=== PATIENT | male | born 1950 | race Caucasian/White ===

== ENCOUNTER → 2022-09-13 13:37 | Outpatient (BNVA) | payer MEDICARE, SELFPAY | PROVIDERS: PCP Internal Medicine; Visit Provider Urology | DX: N40.1 Benign prostatic hyperplasia with lower urinary tract symptoms (principal); N13.8 Other obstructive and reflux uropathy; N52.9 Male erectile dysfunction, unspecified | CPT/HCPCS: Q3014 ==

== ENCOUNTER 2022-11-12 12:18 | Outpatient (REF) | payer MEDICARE, SELFPAY ==
--- NOTE | ~2022-11-12 | US_ITS ---
EXAMINATION: US PELVIS LIMITED (BLADDER) CLINICAL INFORMATION: Benign prostatic hyperplasia with lower urinary tract symptoms. COMPARISON: None TECHNIQUE: Real-time imaging of the bladder. FINDINGS: BLADDER: Well distended and normal. Bilateral ureteral jets are demonstrated. Prevoid bladder volume is 302.9 mL. Postvoid bladder volume is 66.7 mL. Bladder wall thickness is 0.5 cm. Prostate volume measures 12.8 mL and is normal. US/US bladder IMPRESSION: Moderate postvoid residual bladder volume.
== END 2022-11-12 12:19 | disposition home or self-care (01) ==
LOC: HO.US 12:18
PROVIDERS: PCP Internal Medicine; Visit Provider Urology
DX: N40.1 Benign prostatic hyperplasia with lower urinary tract symptoms (principal); N13.8 Other obstructive and reflux uropathy
CPT/HCPCS: 76857

== ENCOUNTER → 2022-11-20 14:12 | Outpatient (BNVA) | payer MEDICARE, SELFPAY | PROVIDERS: PCP Internal Medicine; Visit Provider Urology | DX: N52.9 Male erectile dysfunction, unspecified (principal); N40.1 Benign prostatic hyperplasia with lower urinary tract symptoms; N13.8 Other obstructive and reflux uropathy | CPT/HCPCS: 99212 ==

== ENCOUNTER → 2023-02-18 13:24 | Outpatient (BNVA) | payer MEDICARE, SELFPAY | PROVIDERS: PCP Internal Medicine; Visit Provider Urology | DX: N52.9 Male erectile dysfunction, unspecified (principal) | CPT/HCPCS: Q3014 ==

== ENCOUNTER 2023-08-21 11:33 | Outpatient (AMB) | payer MEDICARE, SELFPAY ==
--- NOTE | 2023-08-21 11:56 | MHC.OFFVIS ---
Intake Intake Visit Reasons: 6m/PVR Allergies ciprofloxacin [From Cipro] Allergy (Mild, Verified 02/18/23 13:27) Hives Penicillins Allergy (Mild, Verified 02/18/23 13:27) burning ragweed pollen Allergy (Mild, Verified 02/18/23 13:27) upper respiratory sulfamethoxazole [From Bactrim] Allergy (Mild, Verified 02/18/23 13:27) Rash trimethoprim [From Bactrim] Allergy (Mild, Verified 02/18/23 13:27) Rash doxazosin Allergy (Mild, Uncoded 02/18/23 13:27) Hypotension Medication List - Last Reconciled 08/21/23 by Dany Breen MD aspirin (Adult Low Dose Aspirin) 81 mg PO DAILY scopolamine base 1 patch topical ONCE PRN tadalafil 20 mg PO ONCE PRN 30 days tadalafil 5 mg PO DAILY 90 days HPI HPI Comments History of Present Illness Details Sang is a pleasant male. He is a patient of Dr. Diaz. He is seen for following urologic conditions - lower urinary tract symptoms - erectile dysfunction Telemedicine Evaluation 15 min Consultation [employer] Charlie Video attempted Will continue with daily 5 mg tadalafil 6 month follow-up Erectile dysfunction Initial symptoms - Progressive Has associated peripheral vascular disease Trialed oral medications number of years ago Minimal morning erections Unable to obtain erection sufficient for intercourse 6 m follow up tadalaifil 5mg Lower urinary tract symptoms Current symptoms - mild urge, minimal nocturia PSA 03/02 0.9 Initial evaluation Nocturia times 1-2 - Urinary urge Had stopped doxazosin secondary to episodes of dizziness - BP 58/30 PVR 0 - Is bothered by current symptoms FELIZ 1+ Assessment & Plan Assessment & Plan (1) Erectile dysfunction: Code(s): N52.9 - Male erectile dysfunction, unspecified Qualifiers: Erectile dysfunction type: vasculogenic 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 Qualified Code(s): N52.03 - Combined arterial insufficiency and corporo-venous occlusive erectile dysfunction (2) BPH w urinary obs/LUTS: Code(s): N40.1 - Benign prostatic hyperplasia with lower urinary tract symptoms; N13.8 - Other obstructive and reflux uropathy Plan Six month follow-up PVR Medications: Changed From tadalafil 5 mg PO DAILY 90 days 90 tabs 1RF sexual activity N52.01 - Erectile dysfunction due to arterial insufficiency To tadalafil 10 mg PO DAILY 90 days 90 tabs 1RF sexual activity N52.01 - Erectile dysfunction due to arterial insufficiency Patient Instructions: Imaging studies, laboratory and physical exam results were discussed and reviewed in detail. No major barriers to patient understanding were identified. An opportunity to ask questions regarding the treatment plan was provided. All questions were answered. The patient expressed understanding and agreement with the above treatment plan. The patient is aware they should contact our office by phone for worsening of their current condition or the appearance of new urologic symptoms. Compliance is encouraged with any medications and followup testing that is ordered. It is a privilege to participate in the urologic care of your patient. If you have any questions or concerns regarding treatment for the above conditions, or other urologic issues, please do not hesitate to contact me. The office telephone contact is [phone]. This note is constructed using voice recognition software. While every effort has been made to ensure accuracy assistant director of security errors may have been included. 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
== END 2023-08-21 12:16 | disposition home or self-care (01) ==
LOC: HO.HUSH 11:33
PROVIDERS: PCP Internal Medicine; Visit Provider Urology
DX: N52.03 Combined arterial insufficiency and corporo-venous occlusive erectile dysfunction (principal); N40.1 Benign prostatic hyperplasia with lower urinary tract symptoms; N13.8 Other obstructive and reflux uropathy
CPT/HCPCS: 99213

== ENCOUNTER → 2023-08-21 11:33 | Outpatient (BNVA) | payer MEDICARE, SELFPAY | PROVIDERS: PCP Internal Medicine; Visit Provider Urology ==

== ENCOUNTER 2024-02-17 13:10 | Outpatient (AMB) | payer MEDICARE, SELFPAY ==
--- NOTE | 2024-02-17 13:16 | A.OFFVIS_ITS ---
Intake Intake Visit Reasons: 6m/PVR (confirmed) Intake Note: Patient is Present for Follow Up Urology Medication: Tadalafil Antibiotic Allergies: Cipro, Penicillins, Sulfa, Trimethroprim Blood Thinners: Aspirin [facility] PVR: 36ml Allergies ciprofloxacin [From Cipro] Allergy (Mild, Verified 02/17/24 13:22) Hives Penicillins Allergy (Mild, Verified 02/17/24 13:22) burning ragweed pollen Allergy (Mild, Verified 02/17/24 13:22) upper respiratory sulfamethoxazole [From Bactrim] Allergy (Mild, Verified 02/17/24 13:22) Rash trimethoprim [From Bactrim] Allergy (Mild, Verified 02/17/24 13:22) Rash doxazosin Allergy (Mild, Uncoded 02/17/24 13:22) Hypotension Medication List - Last Reconciled 02/17/24 by Dany Breen MD aspirin (Adult Low Dose Aspirin) 81 mg PO DAILY scopolamine base 1 patch topical ONCE PRN tadalafil 20 mg PO ONCE PRN 30 days tadalafil 10 mg PO DAILY 90 days HPI HPI Comments History of Present Illness Details Sang is a pleasant male. He is a patient of Dr. Daiz. He is seen for following urologic conditions - lower urinary tract symptoms - erectile dysfunction 6 month follow-up Remains on daily tadalafil for combination erectile dysfunction and lower urinary tract symptoms Stable response Erectile dysfunction Initial symptoms - Progressive Has associated peripheral vascular disease Trialed oral medications number of years ago Minimal morning erections Unable to obtain erection sufficient for intercourse 6 m follow up tadalaifil 5mg Lower urinary tract symptoms Current symptoms - mild urge, minimal nocturia PSA 03/02 0.9 Initial evaluation Nocturia times 1-2 - Urinary urge Had stopped doxazosin secondary to episodes of dizziness - BP 58/30 PVR 0 - Is bothered by current symptoms FELIZ 1+ Review of Systems Const Denies chills and Denies fever(s) Card Reports no additional complaints and Denies syncope Resp Denies cough GI Denies abdominal pain and Denies heartburn Reports as per HPI and Denies change in libido Neuro Denies syncope Psych Denies change in libido Endo Denies change in libido Physical Exam Const General: cooperative, healthy appearing, comfortable and no acute distress Orientation/consciousness: patient oriented x3 HEENT Face and sinus: Yes normal facial exam Mouth: moist mucous membranes Neck Neck: Yes normal visual inspection, Yes full ROM and Yes trachea midline Chest Chest palpation & inspection: normal inspection of the chest Resp Effort & Inspection: normal respiratory effort, able to speak in complete sentences and no respiratory distress GI Inspection: Yes normal to inspection Back/Spine/Pelvis Cervical Spine: normal cervical lordosis Thoracic/Lumbar Spine: thoracic and lumbar spine normal to inspection Skin General skin exam: no rashes or lesions noted Neuro General: patient oriented x3, gait normal, tone normal and moves all extremities Extrem General: Yes normal to inspection and Yes capillary refill normal Office Procedures Post Void Residual Post Residual Void Post Void Residual (PVR): 36 [id number] Void Residual by ultrasound Assessment & Plan Assessment & Plan (1) Erectile dysfunction: Code(s): N52.9 - Male erectile dysfunction, unspecified Qualifiers: Erectile dysfunction type: vasculogenic 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 No major barriers to patient understanding were identified. An opportunity to ask questions regarding the treatment plan was provided. All questions were answered. The patient expressed understanding and agreement with the above treatment plan. The patient is aware they should contact our office by phone for worsening of their current condition or the appearance of new urologic symptoms. Compliance is encouraged with any medications and followup testing that is ordered. It is a privilege to participate in the urologic care of your patient. If you have any questions or concerns regarding treatment for the above conditions, or other urologic issues, please do not hesitate to contact me. The office telephone contact is [phone]. This note is constructed using voice recognition software. While every effort has been made to ensure accuracy water softener service supervisor errors may have been included. 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
== END 2024-02-17 13:52 | disposition home or self-care (01) ==
PROVIDERS: PCP Internal Medicine; Visit Provider Urology
DX: N52.03 Combined arterial insufficiency and corporo-venous occlusive erectile dysfunction (principal); N40.1 Benign prostatic hyperplasia with lower urinary tract symptoms; N13.8 Other obstructive and reflux uropathy
CPT/HCPCS: 99213

== ENCOUNTER → 2024-02-17 13:10 | Outpatient (BNVA) | payer MEDICARE, SELFPAY | PROVIDERS: PCP Internal Medicine; Visit Provider Urology | DX: N40.1 Benign prostatic hyperplasia with lower urinary tract symptoms (principal); N13.8 Other obstructive and reflux uropathy; N52.03 Combined arterial insufficiency and corporo-venous occlusive erectile dysfunction | CPT/HCPCS: 51798; 99212 ==

== ENCOUNTER 2024-08-17 12:44 | Outpatient (AMB) | payer MEDICARE, SELFPAY ==
--- NOTE | 2024-08-17 13:00 | A.OFFVIS_ITS ---
Intake Visit Reasons: 6m follow up Intake Note: Patient is Present for Follow Up Urology Medication: Tadalafil Antibiotic Allergies:Cipro, Penicillins, Sulfa, Trimethroprim Blood Thinners: Aspirin Last PVR: 36ML Last PSA: 02/13/2023- 0.9 Patient states that he does empty out his bladder fine but does take some time to do so. Residential Insurance Inspector Required: No Accompanied by: Self / Same As Patient Allergies ciprofloxacin [From Cipro] Allergy (Mild, Verified 08/17/24 13:11) Hives Penicillins Allergy (Mild, Verified 08/17/24 13:11) burning ragweed pollen Allergy (Mild, Verified 08/17/24 13:11) upper respiratory sulfamethoxazole [From Bactrim] Allergy (Mild, Verified 08/17/24 13:11) Rash trimethoprim [From Bactrim] Allergy (Mild, Verified 08/17/24 13:11) Rash doxazosin Allergy (Mild, Uncoded 08/17/24 13:11) Hypotension HPI Comments Details: Sang is a pleasant male. He is a patient of Dr. Diaz. He is seen for following urologic conditions - lower urinary tract symptoms - erectile dysfunction 6 month follow-up Remains on daily tadalafil for combination erectile dysfunction and lower urinary tract symptoms Stable response Six-month follow-up Erectile dysfunction Initial symptoms - Progressive Has associated peripheral vascular disease Trialed oral medications number of years ago Minimal morning erections Unable to obtain erection sufficient for intercourse 6 m follow up tadalaifil 5mg Lower urinary tract symptoms Current symptoms - mild urge, minimal nocturia PSA 03/02 0.9 Initial evaluation Nocturia times 1-2 - Urinary urge Had stopped doxazosin secondary to episodes of dizziness - BP 58/30 PVR 0 - Is bothered by current symptoms FELIZ 1+ Review of Systems Const Denies chills and Denies fever(s) Card Reports no additional complaints and Denies syncope Resp Denies cough GI Denies abdominal pain and Denies heartburn Reports as per HPI and Denies change in libido Neuro Denies syncope Psych Denies change in libido Endo Denies change in libido Physical Exam Const General: cooperative, healthy appearing, comfortable and no acute distress Orientation/consciousness: patient oriented x3 HEENT Face and sinus: Yes normal facial exam Mouth: moist mucous membranes Neck Neck: Yes normal visual inspection, Yes full ROM and Yes trachea midline Chest Chest palpation & inspection: normal inspection of the chest Resp Effort & Inspection: normal respiratory effort, able to speak in complete sentences and no respiratory distress GI Inspection: Yes normal to inspection Back/Spine/Pelvis Cervical Spine: normal cervical lordosis Thoracic/Lumbar Spine: thoracic and lumbar spine normal to inspection Skin General skin exam: no rashes or lesions noted Neuro General: patient oriented x3, gait normal, tone normal and moves all extremities Extrem General: Yes normal to inspection and Yes capillary refill normal Assessment & Plan Assessment & Plan (1) Erectile dysfunction: Code(s): N52.9 - Male erectile dysfunction, unspecified Category: Medical Qualifiers: Erectile dysfunction type: vasculogenic 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 No major barriers to patient understanding were identified. An opportunity to ask questions regarding the treatment plan was provided. All questions were answered. The patient expressed understanding and agreement with the above treatment plan. The patient is aware they should contact our office by phone for worsening of their current condition or the appearance of new urologic symptoms. Compliance is encouraged with any medications and followup testing that is ordered. It is a privilege to participate in the urologic care of your patient. If you have any questions or concerns regarding treatment for the above conditions, or other urologic issues, please do not hesitate to contact me. The office telephone contact is [phone]. This note is constructed using voice recognition software. While every effort has been made to ensure accuracy bet taker errors may have been included. 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
== END 2024-08-17 13:20 | disposition home or self-care (01) ==
PROVIDERS: PCP Internal Medicine; Visit Provider Urology
DX: N52.03 Combined arterial insufficiency and corporo-venous occlusive erectile dysfunction (principal); N40.1 Benign prostatic hyperplasia with lower urinary tract symptoms; N13.8 Other obstructive and reflux uropathy
CPT/HCPCS: 99213

== ENCOUNTER → 2024-08-17 12:44 | Outpatient (BNVA) | payer MEDICARE, SELFPAY | PROVIDERS: PCP Internal Medicine; Visit Provider Urology | DX: N40.1 Benign prostatic hyperplasia with lower urinary tract symptoms (principal); N13.8 Other obstructive and reflux uropathy; N52.03 Combined arterial insufficiency and corporo-venous occlusive erectile dysfunction | CPT/HCPCS: 99212 ==

== ENCOUNTER 2025-02-15 13:06 | Outpatient (AMB) | payer MEDICARE, SELFPAY ==
--- NOTE | 2025-02-15 13:06 | MHC.OFFVIS ---
Intake Visit Reasons: 6m follow up Intake Note: Patient is present for 6m f/u Urology Medication:tadalafil Antibiotic Allergy:ciprofloxacin,penicillin,sulfa,bactrim,doxazosin Blood Thinner:aspirin Systems Software Designer Required: No Allergies ciprofloxacin [From Cipro] Allergy (Mild, Verified 02/15/25 13:07) Hives Penicillins Allergy (Mild, Verified 02/15/25 13:07) burning ragweed pollen Allergy (Mild, Verified 02/15/25 13:07) upper respiratory sulfamethoxazole [From Bactrim] Allergy (Mild, Verified 02/15/25 13:07) Rash trimethoprim [From Bactrim] Allergy (Mild, Verified 02/15/25 13:07) Rash doxazosin Allergy (Mild, Uncoded 02/15/25 13:07) Hypotension HPI Comments Details: Sang is a pleasant male. He is a patient of Dr. Diaz. He is seen for following urologic conditions - lower urinary tract symptoms - erectile dysfunction Telemedicine Evaluation 15 min Consultation [employer] Charlie Video 6 month follow-up Treatment - tadalafil for combination erectile dysfunction and lower urinary tract symptoms Stable response Erectile dysfunction Initial symptoms - Progressive Has associated peripheral vascular disease Trialed oral medications number of years ago Minimal morning erections Unable to obtain erection sufficient for intercourse Lower urinary tract symptoms Current symptoms - mild urge, minimal nocturia PSA 03/02 0.9 Initial evaluation Nocturia times 1-2 - Urinary urge Had stopped doxazosin secondary to episodes of dizziness - BP 58/30 PVR 0 - Is bothered by current symptoms FELIZ 1+ Review of Systems Const Denies chills and Denies fever(s) Card Reports no additional complaints and Denies syncope Resp Denies cough GI Denies abdominal pain and Denies heartburn Reports as per HPI and Denies change in libido Neuro Denies syncope Psych Denies change in libido Endo Denies change in libido Physical Exam Const General: cooperative, healthy appearing, comfortable and no acute distress Orientation/consciousness: patient oriented x3 HEENT Face and sinus: Yes normal facial exam Mouth: moist mucous membranes Neck Neck: Yes normal visual inspection, Yes full ROM and Yes trachea midline Chest Chest palpation & inspection: normal inspection of the chest Resp Effort & Inspection: normal respiratory effort, able to speak in complete sentences and no respiratory distress GI Inspection: Yes normal to inspection Back/Spine/Pelvis Cervical Spine: normal cervical lordosis Thoracic/Lumbar Spine: thoracic and lumbar spine normal to inspection Skin General skin exam: no rashes or lesions noted Neuro General: patient oriented x3, gait normal, tone normal and moves all extremities Extrem General: Yes normal to inspection and Yes capillary refill normal Assessment & Plan Assessment & Plan (1) BPH w urinary obs/LUTS: Code(s): N40.1 - Benign prostatic hyperplasia with lower urinary tract symptoms; N13.8 - Other obstructive and reflux uropathy Category: Medical (2) Erectile dysfunction: Code(s): N52.9 - Male erectile dysfunction, unspecified Category: Medical Qualifiers: Erectile dysfunction type: vasculogenic 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 While every effort has been made to ensure accuracy underground heavy equipment operator errors may have been included. Imaging studies, laboratory and physical exam results were discussed and reviewed in detail. No major barriers to patient understanding were identified. An opportunity to ask questions regarding the treatment plan was provided. All questions were answered. The patient expressed understanding and agreement with the above treatment plan. The patient is aware they should contact our office by phone for worsening of their current condition or the appearance of new urologic symptoms. Compliance is encouraged with any medications and followup testing that is ordered. It is a privilege to participate in the urologic care of your patient. If you have any questions or concerns regarding treatment for the above conditions, or other urologic issues, please do not hesitate to contact me. The office telephone contact is [phone]. 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
--- OUTSIDE RECORDS SUMMARY | 2025-02-15 15:56 | XMS_ITS | Data Portability ---
Author Organization [facility]ly [facility], later [facility], [employer] Address [address] [place] [address] [place] [address] Care Team Providers Care Securities Lending Trader Name Role Phone DAVEYJose Luis BRAVO Primary Care Provider Assessment Encounter Date Assessment Date Assessment LastModified by Organization Details LastModified Time 09/23/2023 09/23/2023 22 minutes spent on date of service on chart review, direct time spent with patient, and documentation of clinical encounter. 25 minutes spent on date of service on chart review, direct time spent with patient, and documentation of clinical encounter. Not available 09/23/2023 12:12:44 11/13/2023 11/13/2023 25 minutes spent on date of service on chart review, direct time spent with patient, and documentation of clinical encounter. Not available 11/13/2023 20:51:12 12/31/2023 12/31/2023 35 minutes spent on date of service on chart review, direct time spent with patient, and documentation of clinical encounter. Not available 12/31/2023 08:27:55 02/11/2024 02/11/2024 25 minutes spent on date of service on chart review, direct time spent with patient, and documentation of clinical encounter. Not available 02/11/2024 12:33:33 08/27/2024 08/27/2024 Plan - Referral to gastroenterology for colonoscopy due to history of precancerous polyp and mild bowel changes - Order blood work including CBC with differential, lipid panel, comprehensive metabolic panel (sugar, kidney functions, electrolytes, liver enzymes), and PSA - Fasting for 8 hours prior to blood work - Monitor GI symptoms and contact if symptoms worsen prior to GI eval - Recommendation to maintain a high-fiber diet and consider high-quality probiotics like Align or FoodyDirect for bowel regularity - Follow-up in one year unless new symptoms arise or current symptoms worsen Not available 08/27/2024 18:21:46 Plan of Treatment Reminders Order Date Submit Date Provider Last Modified By Organization Details Last Modified Time Details Appointments None recorded. Lab PSA, total, serum or plasma 2023 MARCELO [facility], [address], [place], [address], 06:08:05 CBC w/ auto diff 2023 MARCELO [facility], [address], [place], [address], 06:08:03 lipid panel, serum 2023 MARCELO [facility], [address], [place], [address], 06:08:05 CMP, serum or plasma 2023 024 MARCELO [facility], [address], [place], [address], 4 06:08:04 Referral gastroenter ologist referral 2023 024 caden 4 [facility] Scheduling, [address] [place], [address], 4 14:41:55 Procedures trans-thora cic echocardiog tory (TTE) (PROC) 2023 024 katie 4 [facility] Diagnostic Scheduling, [address], [place], [address], 4 12:30:43 Surgeries None recorded. Imaging XR, chest, 2 view 2023 [facility] Radiology Central Scheduling, [address] [place], [address], 4 12:46:31 Medication Orders Symbicort 80 mcg-4.5 mcg/actuati on HFA aerosol inhaler [address] [id number], [address] [place], [place], [id number], 4 13:24:04 albuterol sulfate HFA 90 mcg/actuati on aerosol inhaler 2022 023 [id number], [address] [place], [address], 3 11:51:10 Patient TargetsNo targets recorded. Patient InstructionsNo instructions recorded. 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 Tubular adenoma of colon Referring Physician: Bravo Maravilla, Internal Medicine, Encounter Date: 08/27/2024 Results Created Date Observation Date Name Description Value Unit Range Abnormal Flag Note LastModifiedBy Organization Detail LastModifiedTime 09/01/2009/01/2024 CBC WITH DIFFE RENTI AL/PL ATELE T WBC 4.7 x10e3 /uL 3.4-10 .8 normal Not Available [facility] ([facility]) [address] [place], [address], 09/02/2024 06:08:03 09/01/2009/01/2024 CBC WITH DIFFE RENTI AL/PL ATELE T RBC 4.77 x10e6 /uL 4.14-5 .80 normal Not Available [facility] ([facility]) [address] [place], [address], 09/02/2024 06:08:03 09/01/2009/01/2024 CBC WITH DIFFE RENTI AL/PL ATELE T hemoglobin 14.2 g/dL 13.0-1 7.7 normal Not Available [facility] ([facility]) [address] [place], [address], 09/02/2024 06:08:03 09/01/2009/01/2024 CBC WITH DIFFE RENTI AL/PL ATELE T hematocrit 44.2 % 37.5-5 1.0 normal Not Available [facility] ([facility]) [address] [place], [address], 09/02/2024 06:08:03 09/01/2009/01/2024 CBC WITH DIFFE RENTI AL/PL ATELE T MCV 93 fL 79-97 normal Not Available [facility] ([facility]) [address] [place], [address], 09/02/2024 06:08:03 09/01/2009/01/2024 CBC WITH DIFFE RENTI AL/PL ATELE T MCH 29.8 pg 26.6-3 3.0 normal Not Available [facility] ([facility]) [address] [place], [address], 09/02/2024 06:08:03 09/01/2009/01/2024 CBC WITH DIFFE RENTI AL/PL ATELE T MCHC 32.1 g/dL 31.5-3 5.7 normal Not Available [facility] ([facility]) [address] [place], [address], 09/02/2024 06:08:03 09/01/2009/01/2024 CBC WITH DIFFE RENTI AL/PL ATELE T RDW 12.6 % 11.6-1 5.4 Not Available [facility] ([facility]) [address] [place], [address], 09/02/2024 06:08:03 09/01/2009/01/2024 CBC WITH DIFFE RENTI AL/PL ATELE T platelets 154 x10e3 /uL 150-45 0 normal Not Available [facility] ([facility]) [address] [place], [address], 09/02/2024 06:08:03 09/01/2009/01/2024 CBC WITH DIFFE RENTI AL/PL ATELE T neutrophils 64 % not estab. normal Not Available [facility] ([facility]) [address] [facility], , [address], 09/02/2024 06:08:03 09/01/2009/01/2024 CBC WITH DIFFE RENTI AL/PL ATELE T lymphs 27 % not estab. normal Not Available [facility] ([facility]) [address] [facility], , [address], 09/02/2024 06:08:03 09/01/2009/01/2024 CBC WITH DIFFE RENTI AL/PL ATELE T monocytes 8 % not estab. normal Not Available [facility] ([facility]) [address] [facility], , [address], 09/02/2024 06:08:03 09/01/2009/01/2024 CBC WITH DIFFE RENTI AL/PL ATELE T eos 1 % not estab. normal Not Available [facility] ([facility]) [address] [facility], , [address], 09/02/2024 06:08:03 09/01/2009/01/2024 CBC WITH DIFFE RENTI AL/PL ATELE T basos 0 % not estab. normal Not Available [facility] ([facility]) [address] [facility], , [address], 09/02/2024 06:08:03 09/01/2009/01/2024 CBC WITH DIFFE RENTI AL/PL ATELE T immature cells TOOL AND PRODUCTION PLANNER Not Available [facility] ([facility]) [address] [place], [address], 09/02/2024 06:08:03 09/01/2009/01/2024 CBC WITH DIFFE RENTI AL/PL ATELE T neutrophils (absolute) 3.0 x10e3 /uL 1.4-7. 0 normal Not Available [facility] ([facility]) [address] [facility], , [address], 09/02/2024 06:08:03 09/01/2009/01/2024 CBC WITH DIFFE RENTI AL/PL ATELE T lymphs (absolute) 1.3 x10e3 /uL 0.7-3. 1 normal Not Available [facility] ([facility]) [address] [facility], , [address], 09/02/2024 06:08:03 09/01/2009/01/2024 CBC WITH DIFFE RENTI AL/PL ATELE T monocytes(ab solute) 0.4 x10e3 /uL 0.1-0. 9 normal Not Available [facility] ([facility]) [address] [facility], , [address], 09/02/2024 06:08:03 09/01/2009/01/2024 CBC WITH DIFFE RENTI AL/PL ATELE T eos (absolute) 0.1 x10e3 /uL 0.0-0. 4 normal Not Available [facility] ([facility]) [address] [facility], , [address], 09/02/2024 06:08:03 09/01/2009/01/2024 CBC WITH DIFFE RENTI AL/PL ATELE T baso (absolute) 0.0 x10e3 /uL 0.0-0. 2 normal Not Available [facility] ([facility]) [address] [facility], , [address], 09/02/2024 06:08:03 09/01/2009/01/2024 CBC WITH DIFFE RENTI AL/PL ATELE T immature granulocytes 0 % not estab. Not Available [facility] ([facility]) [address] [facility], , [address], 09/02/2024 06:08:03 09/01/2009/01/2024 CBC WITH DIFFE RENTI AL/PL ATELE T immature grans (abs) 0.0 x10e3 /uL 0.0-0. 1 Not Available [facility] ([facility]) [address] [facility], , [address], 09/02/2024 06:08:03 09/01/20 24 09/01/2024 CBC WITH DIFFE RENTI AL/PL ATELE T NRBC TOOL AND PRODUCTION PLANNER Not Available [facility] ([facility]) [address] [facility], , [address], 09/02/2024 06:08:03 09/01/2009/01/2024 CBC WITH DIFFE RENTI AL/PL ATELE T hematology comments: TOOL AND PRODUCTION PLANNER Not Available [facility] ([facility]) [address] [facility], , [address], 09/02/2024 06:08:03 09/01/2009/01/2024 COMP. METAB OLIC PANEL (14) BUN 23 mg/dL 8-27 normal Not Available [facility] ([facility]) [address] [facility], , [address], 09/02/2024 06:08:04 09/01/2009/01/2024 COMP. METAB OLIC PANEL (14) creatinine 0.84 mg/dL 0.76-1 .27 normal Not Available [facility] ([facility]) [address] [facility], , [address], 09/02/2024 06:08:04 09/01/2009/01/2024 COMP. METAB OLIC PANEL (14) eGFR 91 mL/mi n/1.7 3 >59 normal Not Available [facility] ([facility]) [address] [facility], , [address], 09/02/2024 06:08:04 09/01/20 24 09/01/2024 COMP. METAB OLIC PANEL (14) BUN/creatini ne ratio 27 10-24 above high normal Not Available [facility] ([facility]) [address] [place], [address], 09/02/2024 06:08:04 09/01/2009/01/2024 COMP. METAB OLIC PANEL (14) sodium 147 mmol/ L 134-14 4 above high normal Not Available [facility] ([facility]) [address] [place], [address], 09/02/2024 06:08:04 09/01/2009/01/2024 COMP. METAB OLIC PANEL (14) potassium 4.6 mmol/ L 3.5-5. 2 normal Not Available [facility] ([facility]) [address] [place], [address], 09/02/2024 06:08:04 09/01/2009/01/2024 COMP. METAB OLIC PANEL (14) carbon dioxide, total 25 mmol/ L 20-29 normal Not Available [facility] ([facility]) [address] [facility] [place], [address], 09/02/2024 06:08:04 09/01/2009/01/2024 COMP. METAB OLIC PANEL (14) calcium 9.1 mg/dL 8.6-10 .2 normal Not Available [facility] ([facility]) [address] [facility] [place], [address], 09/02/2024 06:08:04 09/01/2009/01/2024 COMP. METAB OLIC PANEL (14) protein, total 6.1 g/dL 6.0-8. 5 normal Not Available [facility] ([facility]) [address] [facility] [place], [address], 09/02/2024 06:08:04 09/01/2009/01/2024 COMP. METAB OLIC PANEL (14) albumin 4.0 g/dL 3.8-4. 8 normal Not Available [facility] ([facility]) [address] [facility], [place], [address], 09/02/2024 06:08:04 09/01/2009/01/2024 COMP. METAB OLIC PANEL (14) globulin, total 2.1 g/dL 1.5-4. 5 Not Available [facility] ([facility]) [address] [place], [address], 09/02/2024 06:08:04 09/01/2009/01/2024 COMP. METAB OLIC PANEL (14) bilirubin, total 0.5 mg/dL 0.0-1. 2 normal Not Available [facility] ([facility]) [address] [place], [address], 09/02/2024 06:08:04 09/01/2009/01/2024 COMP. METAB OLIC PANEL (14) alkaline phosphatase 97 IU/L 44-121 normal Not Available [facility]) [address] [place] , [address], 09/02/2024 06:08:04 09/01/2009/01/2024 COMP. METAB OLIC PANEL (14) AST (SGOT) 17 IU/L 0-40 normal Not Available [facility] ([facility]) [address] [place], [address], 09/02/2024 06:08:04 09/01/2009/01/2024 COMP. METAB OLIC PANEL (14) ALT (SGPT) 15 IU/L 0-44 normal Not Available [facility] ([facility]) [address] [facility] [place], [address], 09/02/2024 06:08:04 09/01/2009/02/2024 COMP. METAB OLIC PANEL (14) glucose 109 mg/dL 70-99 above high normal Not Available [facility] ([facility]) [address] [facility] , [address], 09/02/2024 06:08:04 09/01/2009/02/2024 COMP. METAB OLIC PANEL (14) chloride 106 mmol/ L 96-106 normal Not Available [facility] ([facility]) [address] [facility] , [address], 09/02/2024 06:08:04 09/01/2009/01/2024 LIPID PANEL cholesterol, total 177 mg/dL 100-19 9 normal Not Available [facility] ([facility]) [address] [facility] , [address], 09/02/2024 06:08:05 09/01/2009/01/2024 LIPID PANEL triglyceride s 70 mg/dL 0-149 normal Not Available [facility] ([facility]) [address] [place], [address], 09/02/2024 06:08:05 09/01/2009/01/2024 LIPID PANEL HDL cholesterol 47 mg/dL >39 normal Not Available [facility]) [address] [facility] , [address], 09/02/2024 06:08:05 09/01/2009/01/2024 LIPID PANEL VLDL cholesterol fe 13 mg/dL 5-40 Not Available [facility] ([facility]) [address] [place], [address], 09/02/2024 06:08:05 09/01/2009/01/2024 LIPID PANEL LDL chol calc ([facility]) 117 mg/dL 0-99 above high normal Not Available [facility] ([facility]) [address] [place], [address], 09/02/2024 06:08:05 09/01/2009/01/2024 LIPID PANEL LDL calc comment: TOOL AND PRODUCTION PLANNER Not Available [facility] ([facility]) [address] [place], [address], 09/02/2024 06:08:05 09/01/20 24 09/01/2024 PROST ATE-S PECIF IC AG prostate specific Ag 1.5 NG/mL 0.0-4. 0 normal Yahir ECLIA metho dolog y. Accor ding to the Ameri can [employer]o g[employer] iatio n, Serum PSA shoul d decre ase and remai n at undet ectab le level s after radic al prost atect maxine. The AUA defin es bioch emica l recur rence as an initi al PSA value 0.2 ng/mL or great er follo wed by a subse quent confi rmato ry PSA value 0.2 ng/mL or great er. Value s obtai jaime with diffe rent assay metho ds or kits canno t be used inter rojas eably . Resul ts canno t be inter prete d as absol kashia evide nce of the prese nce or absen ce of [facility] darius disea se. Not Available [facility] ([facility]) [address], , [address], 09/02/2024 06:08:05 11/13/19 24 11/13/2023 XR, chest , 2 view Chest 2 Views Fronta l and Lat Reason : cough COMPAR JUSTIN: None. FINDIN GS: LINES AND TUBES: None. LUNGS AND PLEURA : Clear lungs. Normal pulmon allyson vascul arity. Modera te elevat ion of the right hemidi aphrag m probab ly due to eventr ation with minima l subseg mental atelec tasis right lung base. No pleura l effusi on. No pneumo thorax . HEART, MEDIAS TINUM AND ZOE: Heart is normal in size. Normal medias tinal and hilar contou r. BONES AND SOFT TISSUE S: No acute abnorm ality. IMPRES VINEET: No acute cardio pulmon allyson diseas e is seen. WSN: [id number] Orderi ng Physic fernando: Bravo Maravilla Dictat ed By: Corrina billingsley MD, Nasir Awan Dictat ed Date/T aruna: 12:43 p Review ed By: Corrina billingsley MD, Nasir V Signed By: Nasir Do MD V Signed Date/T aruna: 12:43 pm Transc ribed By: ZURI Transc ribed Date/T aruna: 12:42 pm Patien t Class: 5 [facility] (Outpt Imaging) [address], [place], [address], 11/14/2023 15:32:16 01/29/20 24 01/28/2024 trans -thor acic echoc ardio gram (TTE) (PROC ) No observ ation record ed. [facility] (Pulmonary Lab) [address] [place], [address], 01/29/2024 13:26:36 02/03/20 24 02/03/2024 imagi ng/di agnos tic resul t No observ ation record ed. [facility] [address], [place], [address], 02/04/2024 23:49:11 Result Notes None recorded. 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 I have reviewed the images of the MRA with the patient. I explained to him that he does not require any interventi on for these findings. Would advise continuing aspirin 81 mg daily. May consider repeat in 3-5 years (4179-8338 ). Bravo Maravilla, IVY [address] [facility], [address], [place], [place], [address], [place] [facility] 4 20:40:13 Peripheral venous insufficie ncy 23069340 Active 2022 Bravo Maravilla NP [address] [facility] [address], [address], [place], [address], [place] [facility] 3 12:43:36 Benign prostatic hyperplasi a 761091754 Active 2022 Bravo Maravilla NP [address] [facility], [address], [place], [address], [place] [facility] 3 12:43:43 Tremor 31166623 Active 2022 reports as mild, many family members with Parkinson' s Bravo Maravilla, TOOL AND PRODUCTION PLANNER [address] [facility], [address], [place], [address], [place] [facility] 3 12:44:07 Syncope 297537104 Active 2023 Bravo Andersonb, TOOL AND PRODUCTION PLANNER [address] [facility], [address], [place], [address], [place] [facility] 4 09:34:19 Motion sickness 18097232 Active 2023 Bravo Andersonb, TOOL AND PRODUCTION PLANNER [address] [facility], [address], [place], [address], [place] [facility] 4 12:08:22 Tubular adenoma of colon 709565816 Active 2023 Bravo Maravilla, TOOL AND PRODUCTION PLANNER [address] [facility], [address], [place], [address], [place] [facility] 4 13:33:26 Problem Notes None recorded. Procedures Surgical History Date Name Laterality Status Provider Name and Address Organization Details Recorded Time 5 Colonoscopy completed Joie Guerra [place] [facility] 01/17/2025 10:48:16 Eye Surgery completed Marina Fernandez [place] [facility] 11/22/2022 09:51:04 Imaging Results Imaging Date Name Status LastModified by Organization Details LastModified Time 11/13/2023 XR, chest, 2 view completed [facility] (Outpt Imaging) [address] [place], [address], 11/14/2023 15:32:16 01/28/2024 trans-thoracic echocardiogram (TTE) (PROC) completed [facility] (Pulmonary Lab) [address] [place], [address], 01/29/2024 13:26:36 02/03/2024 imaging/diagnostic result completed [facility] [address], [place], [address], 02/04/2024 23:49:11 Procedure Notes None recorded. Medical Equipment None Reported. Allergies Allergen ID Allergen Name Allergen Category Reaction Reaction Severity Criticality Documentation Date Start Date Code Code System Note Provider Name and Address Organization Details Recorded Time 2966 Bactrim medicatio n rash severe Not available 11/22/2022 83600 9 RxNorm Marina Petrowicz null, [place] [facility] 3 09:50:41 2967 ragweed pollen environme nt eye redness respirato ry distress Not available Not available Not available 11/22/2022 49129 UNK Marina Petrowicz null, [place] [facility] 3 09:50:41 2968 Product containin g penicilli n (product) medicatio n vasculiti s severe Not available 11/22/2022 96240 8001 SNOMED Marina Petrowicz null, [place] [facility] 3 09:50:41 2969 Cipro medicatio n Not available Not available Not available 11/22/2022 61148 3 RxNorm Marina Petrowicz null, [place] [facility] 3 10:02:49 Medications Name Sig Start Date Stop Date Status Note LastModified by Organization Details LastModified Time multivitami n tablet 1 tablet every day by oral route. 2022 active Not Available Not Available Not Avai lable alprazolam 0.5 mg tablet TAKE 1 TABLET BY MOUTH 1 HOUR PRIOR TO MRI MAY REPEAT DOSE IN 45 MIN IF INEFFECTI VE 04/15 completed Not Available Not Available Not Available doxazosin 4 mg tablet TAKE ONE TABLET BY MOUTH EVERY DAY AT BEDTIME 02/24 completed Not Available Not Available Not Available aspirin 81 mg tablet 1 tablet every day by oral route. 2003 active Not Available Not Available Not Avai lable scopolamine 1 mg over 3 days transdermal patch APPLY 1 PATCH TOPICALLY TO THE SKIN EVERY 3 DAYS NEEDED FOR 10 DAYS NEEDED active Not Available Not Available No t Available Ventolin HFA 90 mcg/actuati on aerosol inhaler INHALE 2 PUFFS EVERY 6 HOURS BY INHALATIO N NEEDED active Not Available Not Available No t Available tadalafil 5 mg tablet TAKE 1 TABLET DAILY; FOR SEXUAL ACTIVITY FOR 90 DAYS 11/13 completed Not Available Not Available Not Available tadalafil 10 mg tablet TAKE ONE TABLET BY MOUTH ONCE DAILY FOR SEXUAL ACTIVITY active Not Available Not Available No t Available tadalafil 20 mg tablet TAKE ONE TABLET BY MOUTH ONCE NEEDED FOR SEXUAL ACTIVITY 60 MINUTES PRIOR TO ACTVIVITY 02/24 completed Not Available Not Available Not Available budesonide- formoterol HFA 80 mcg-4.5 mcg/actuati on aerosol inhaler INHALE 2 PUFFS BY MOUTH TWICE DAILY 08/27 completed Not Available Not Available Not Available PreserVisio n AREDS-2 2022 active Not Available Not Available Not Avai lable Vitals Date Recorded Body height Body mass index (BMI) Body weight Oxygen saturation Oxygen saturation in Arterial blood by Pulse oximetry Heart rate Systolic blood pressure Diastolic blood pressure Provider Name and Address Organization Details Last Updated DateTime 4 175.26 cm 29.8 kg/m2 73685.3 6 g 97 % 97 % 80 /min 136 mm[Hg] 74 mm[Hg] Mone Kam [facility] 4 10:42:50 Date Recorded Body height Body mass index (BMI) Body weight Oxygen saturation Oxygen saturation in Arterial blood by Pulse oximetry Heart rate Systolic blood pressure Diastolic blood pressure Provider Name and Address Organization Details Last Updated DateTime 4 175.26 cm 28.7 kg/m2 44286.6 2 g 98 % 98 % 77 /min 120 mm[Hg] 72 mm[Hg] Mone Kam [facility] 4 07:54:55 Date Recorded Body height Body mass index (BMI) Body weight Oxygen saturation Oxygen saturation in Arterial blood by Pulse oximetry Heart rate Systolic blood pressure Diastolic blood pressure Provider Name and Address Organization Details Last Updated DateTime 4 175.26 cm 27.6 kg/m2 56072.7 7 g 95 % 95 % 73 /min 106 mm[Hg] 70 mm[Hg] Joie chaidez [facility] 4 09:16:54 Date Recorded Body height Heart rate Body mass index (BMI) Body weight Oxygen saturation Oxygen saturation in Arterial blood by Pulse oximetry Systolic blood pressure Diastolic blood pressure Provider Name and Address Organization Details Last Updated DateTime 4 175.26 cm 70 /min 27.5 kg/m2 60997.1 8 g 96 % 96 % 130 mm[Hg] 70 mm[Hg] Stan Mcdaniels [address] [facility] [address], [place], [address], [place] [facility] 13:22:36 Social History Question Answer Notes LastModified by Organizat ion Details LastModified Time Tobacco Smoking Status Never Smoker Marina Fernandez null, [facility] 11/22/2022 09:50:56 Do You Have An Advance Directive? Yes Information not available 11/22/2022 What Is Your Level Of Alcohol Consumption? Occasional Information not available 11/22/2022 Are You Currently Employed? Yes Information not available 11/22/2022 Do You Or Have You Ever Used Smokeless Tobacco? Never Used Smokeless Tobacco Information not available 11/22/2022 How Much Tobacco Do You Smoke? No Information not available 11/22/2022 Do You Use Any Illicit Or Recreational Drugs? No Information not available 11/22/2022 Sex: Male Functional Status None recorded. Mental Status None recorded. Family History Relationship Description Onset Age of this Age Resolved Age Notes LastModified by Organization Details LastModified Time Father Myocardial infarction 87 87 [email or web address] Not available 11/10 09:50:27 Father Heart disease 87 [email or web address] Not available 11/22 09:50:27 Father Anemia 27 87 [email or web address] Not available 11/22/2022 09:50:27 Mother Osteoporosis 83 [email or web address] Not kilo ilable 11/22/2022 09:50:27 Mother Chronic obstructive pulmonary disease 50 83 [email or web address] Not available 11/22 09:50:27 Mother Mental disorder 83 [email or web address] Not available 11/22 09:50:27 Paternal Aunt Malignant neoplastic disease 60 63 [email or web address] Not available 11/22 09:50:27 Brother Chronic obstructive pulmonary disease 50 78 [email or web address] Not available 11/22 09:50:27 Brother Diabetes mellitus 50 78 [email or web address] Not available 11/22 09:50:27 Brother Disorder of nervous system 60 74 [email or web address] Not available 11/22 09:50:27 Brother Disorder of thyroid gland 40 74 tpetrowicz Not available 11/22 09:50:27 Sister Disorder of thyroid gland 30 tpetrowicz Not available 11/22 09:50:27 Sister Osteoporosis 65 tpetrowicz Not kilo ilable 11/22/2022 09:50:27 Paternal Grandmother Cerebrovascu lar accident 65 [phone] tpetrowicz Not available 09:50:27 Medical History Condition Response Allergies/Hayfever Y Heart Problems Y Other Y Vision or Eye Problems Y Reflux/GERD Y Polyps Y Ear or Hearing Problems Y GI Problems Y Immunizations Vaccine Type Date Status Note Provider Nam e and Address Organization Details Recorded Time Influenza, split virus, quadrivalent, PF 08/20/2017 completed Bravo Maravilla, [employer] [address], [address], [place] [facility] 11/22/2022 10:20:39 Influenza, split virus, quadrivalent, PF 09/05/2021 completed Bravo Maravilla, [employer] [address], [address], [place] [facility] 11/22/2022 10:20:40 Tdap 11/17/2017 completed Bravo Maravilla, N P [address], [address], [place] [facility] 11/22/2022 10:20:40 COVID-19, mRNA, LNP-S, PF, 100 mcg/0.5mL dose or 50 mcg/0.25mL dose 09/24/2021 completed Bravo Maravilla, [employer] [address], [address], [place] [facility] 11/22/2022 10:20:40 COVID-19, mRNA, LNP-S, PF, 100 mcg/0.5mL dose or 50 mcg/0.25mL dose 03/08/2022 completed Bravo Maravilla, [employer] [address], [address], [place] [facility] 11/22/2022 10:20:40 COVID-19, mRNA, LNP-S, PF, 100 mcg/0.5mL dose or 50 mcg/0.25mL dose 12/12/2020 completed Bravo Maravilla NP [address] [facility] [address], [place], [place], , [place] [facility] 11/22/2022 10:20:40 COVID-19, mRNA, LNP-S, PF, 100 mcg/0.5mL dose or 50 mcg/0.25mL dose 11/14/2020 completed Bravo Maravilla NP [address] [facility] [address], [place], [place], , [place] [facility] 11/22/2022 10:20:40 COVID-19, mRNA, LNP-S, bivalent, PF, 50 mcg/0.5 mL or 25mcg/0.25 mL dose 09/10/2022 completed Not Available [facility] 10[facility]51 Influenza, split virus, quadrivalent, PF 09/05/2023 completed [facility], [place] [facility] 02/11/2024 09:15:06 Past Encounters Encounter ID Performer Location Encounter Start Date Encounter Closed Date Diagnosis/Indication Diagnosis SNOMED-CT Code Diagnosis ICD10 Code Diagnosis Note [id number] Bravo Maravilla NP Main Office [address] [place] [address] [address] [place] [address] 11/22/2022 09:48:37 11/22/2022 10:34:12 Screening for cardiovascular system disease 336585921 Z13.6 [id number] Bravo Maravilla NP Main Office 55 [facility] [address] [place] [address] 02/24/2023 10:42:34 02/24/2023 11:19:33 Headache 45825786 R51.9 stabbing pain in r eye at intervals 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 No red flag symptoms to warrant urgent ED referral or imaging, although I advised him what they would be. Pain of right eye [id number] 42522 H57.11 No red flag findings to warrant urgent imaging or referral. Will proceed with imaging as above and request follow up with his neurologis t, Dr Patricia hinojosa. Could be ethmoid sinusitis- continue flonase and monitor symptoms. He is due for eye exam and he will arrange this. [id number] Bravo Maravilla NP Main Office [address] [place] [address],[address] [place] [address] 04/18/2023 08:06:21 04/18/2023 08:47:54 Adult health examination 029747053 Z00.00 [id number] Bravo Maravilla NP Main Office [address] [place] [address],[address] [facility] [place] [address] 09/23/2023 11:09:46 09/23/2023 12:16:19 Wheezing 58619046 R06.2 Likely due to some reactive airway disease, pt denies history of asthma but also states he has been treated for bronchospa sms. No productive cough, ongoing dyspnea, fever to suggest CAP, no chest pain or dyspnea to suggest PE, or metabolic abnormalit y. Treat as below- discussed possible s/e of ADOLFO. CAll if no improvemen t. [id number] Bravo Maravilla NP Main Office [address] [place] [address],[address] [facility] [address] 11/13/2023 10:12:37 11/13/2023 11:29:49 Cough [id number] R05.9 PNA unlikely, but will check XRAY.PE unlikely as no chest pain, hypoxemia. Most likely some mild reactive airway disease (asthma) which he has been treated for in the past. LIkely triggered by viral infection. Some improvemen t with ventolin, which I reviewed is short acting medication . Try ICS/LABA, may use ventolin PRN. Pt will provide me with update in 2-3 weeks regarding effects. Consider PFT, pulmonary consult if no improvemen t. Could also try montelukas t as he does state significan t reactions to environmen holden triggers. [id number] Bravo Maravilla NP Main Office [address] [place] [address],[address] [place] [address] 12/31/2023 07:48:43 12/31/2023 08:35:08 Syncope 275956457 R55 Pt states this has happened throughout his life.Had MRA of head/neck last year which did not show high grade stenosis.W ill check zio patch to r/o dangerous arrythmias or heart blocks.Paz ck echo as above.Enco uraged patient to push fluids, especially prior to exercise, consider having salty snack before exercise. He wears compressio n stockings regularly. Will f/u in 6 weeks with test results. Seen in [facility] [id number] Z76.89 Records reviewed. No medication changes. [id number] Bravo Maravilla NP Main Office [address] [facility],[address] [place] [address] 02/11/2024 09:03:06 02/11/2024 09:46:04 Syncope 797081690 R55 Pt states this has happened throughout his life.Had MRA of head/neck last year which did not show high grade stenosis, known aneurysm stable.Zio patch/echo without any dangerous findings.S uspect vasovagal in nautre. Encouraged him to stay hydrated, consider pre-workin g snack, pt states is trying intermitte nt fasting. Continue compressio n stockings due to known venous insufficie ncy.F/u PRN. [id number] Bravo Maravilla NP Main Office [address] [place] [address],[address] [place] [address] 08/27/2024 13:16:20 08/27/2024 14:00:59 Tubular adenoma of colon [id number] D12.6 Last colonoscop y 2015, he is overdue for follow up.With changes in bowel habits, he is agreeable to GI referral. Screening for cardiovascular system disease 365057870 Z13.6 Check labs as below. Screening for malignant neoplasm of prostate 942248541 Z12.5 He is agreeable to screen, although I discussed risk of false positives. He does follow with urology so I cc'd them on results. Tremor 06615518 R25.1 Mild, slightly worse in right hand. Could consider medication like propranolo l if bothersome . No other parkinsoni sm symptoms. Monitor. Health Concerns Section Related Observation LastModified by Organization Detai ls LastModified Time None Recorded Concern Status LastModified by Organization Details LastModified Time None Recorded Advance Directives Directive Y: Payers Encounter Date Sequence Insurance Name Policy Number Policy Onofre Covered Member ID Onofre Member ID Guarantor Name 09/23/2023 1 [place] [facility] Sang Campo Boateng [id number] Sang Boateng 09/23/2023 2 [employer] (MEDICARE SUPPLEMENT) Sang Boateng [id number] Sang Boateng 11/13/2023 1 [place] [facility] Sang L Boateng [id number] Sang Boateng 11/13/2023 2 [employer] (MEDICARE SUPPLEMENT) Sang Boateng [id number] Sang Boateng 12/31/2023 1 [place] [facility] Sang L Boateng [id number] Sang Boateng 12/31/2023 2 [employer] (MEDICARE SUPPLEMENT) Sang Boateng [id number] Sang Boateng 02/11/2024 1 [place] [facility] Snag L Boateng [id number] Sang Boateng 02/11/2024 2 [employer] OPTIONS (MEDICARE SUPPLEMENT) Sang Boateng [id number] Sang Boateng 08/27/2024 1 [place] [facility] Sang L Boateng [id number] Sang Boateng 08/27/2024 2 [employer] (MEDICARE SUPPLEMENT) Sang Boateng [id number] Sang Boateng Notes Date Note Type Note Provider Name and Address Organization Details Recorded Time 09/23/2023 text/html This TH visit wa s arranged to discuss wheezing after COVID 19 infection.He states he had mild COVID-19 in July, had about 4 days of symptoms, then had productive cough/headache, sore throat. About 3 weeks ago has sporadic dry cough, non-productive, then morning/evening wheezing. Yesterday wheezing on exertion.Currently has no symptoms. Mostly in upper chest, with dry cough.Hx allergies, particularly to ragweed.No personal history of asthma, sometimes wheezes with exposure to 1 chemical, some type of glue.No LOLA-i, just tadalafil and vitamins.No smoking history.Family hx COPD, these family members were heavy smokers.No fever, no chest pain, no palpitations, new leg edema, no weight gain. Bravo Maravilla, [employer] PLANNER [address] [address], [place], [address], [facility] 09/23/2023 12:13:48 11/13/2023 text/html He is here for lingering cough. We did televisit to address this in September.He had COVID 19 in July which was mild overall. Since then, having some chest tightness and wheezing.We prescribed ventolin which he believes is helping a bit, but still feeling chest tightness and wheezing in the evening.He has some environmental allergies, in the past was on advair.No exertional symptoms.Has a history of PVCs but no palpitations associated with these symptoms.No productive cough, fever, weight loss, etc. No personal smoking history, but lots of exposure to 2nd hand smoke, and some environmental irritations through his hobbies (glues). Bravo Maravilla NP [address], [address], [facility] 11/13/2023 20:51:16 12/31/2023 text/html He is here for E D follow up after syncopal episode.on 12/22/23 he had syncopal episode at the gym. He states he passed out 3x, he had been doing pull ups and push ups which he does normally. 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 Pt states he has a history of this happening, since childhood.He states he had cardiac work up for this episode in the past.He is using symbicort which has improved his wheezing. He is taking symbicort once in the morning. He has had a MRA of head and neck in 2022 which did not show any high grade stenosis.He generally drinks about 5 16 oz daily. He is trying intermittent fasting, syncopal episode happened during a period of fasting. Bravo Maravilla, IVY [address] [facility] [address], [place], [address], [facility] 12/31/2023 08:36:59 02/11/2024 text/html He is here to follow up on zio patch/echo report. Both of which essentially normal, brief runs of SVT which was not when he had symtoms.Pt denies any further syncope episodes. He states he has had syncopal episodes since childhood. Has known ICA but recent MRA did not show any change.Episodes only occured with exercise. States he has noticed he holds his breath at times unintentionally. Wears compression stockings, has been pushing fluids. Is trying intermittent fasting, so no PO intake besides water until 12 pm. Bravo Maravilla, IVY 55 [facility], [facility] [address], [place], [address], [facility] 02/11/2024 12:33:37 08/27/2024 text/html He is here for routine follow up.Has chronic tremor in right hand, a little worse at times.Change in bowel habits: BMs softer, more frequent. History of present illness- Essential tremor worsening in the right hand, noticeable when watching TV, not present at rest- Occasional head bobbing- Change in bowel habits, more constipation, frequent urge to defecate without success- No diarrhea currently, history of diarrhea in the past- No food allergies except for scallops, which cause bowel reactions- No issues with dairy- Sometimes experiences bright red blood in stool due to hemorrhoids Past medical history- Essential tremor- Irritable bowel syndrome- History of diarrhea (resolved)- Hemorrhoids- History of precancerous polyp Family history- Family member from myofibrosis Social history- Eats a lot of vegetables- Takes fiber gummies daily- - Works as a licensed aircraft maintenance engineer- Former [employer] service- Sleeps 4-5 hours per night, naps in the afternoon- Exercises by riding a bike 20-30 miles Allergies- Scallops (causes bowel reaction, not anaphylactic) Current medications- Tamsulosin, dosage and frequency not specified- Tadalafil, dosage and frequency not specified- Fiber gummies, daily- Antacids with melatonin, as needed Immunizations- Pneumonia vaccine, administered end of July- COVID vaccine, administered end of July- Flu vaccine, administered end of July- RSV vaccine, administered end of July Bravo Maravilla, IVY 55 [facility], [facility] [address], [place], [address], [facility] - [facility] 08/27/2024 18:22:31
--- OUTSIDE RECORDS SUMMARY | 2025-02-15 15:56 | XMS_ITS | Clinical Summary ---
Author Organization [facility] Address [address] [place] [address] Care Team Providers Care Literary Writer Name Role Phone Unavailable Primary Care Provider Unavailabl e Social History Tobacco Use Types Packs/Day Years Used Date Smoking Tobacco: Never Assessed Sex and Gender Information Value Date Recorded Sex Assigned at Not on file Gender Identity Not on file Sexual Orientation Not on file Plan of Treatment Health Maintenance Due Date Last Done Comments Hepatitis C Virus Screening 1950 DTaP/Tdap/Td Vaccines (1 - Tdap) 1967 Pneumococcal Vaccines 50+ (1 of 1 - PCV) 1998 Zoster (Shingles) Vaccine (1 of 2) 1998 RSV Vaccine 60 years and old er and Patients (1 - 1-dose 75+ series) 2023 COVID-19 Vaccine (2023-2 5 season) 2024 Hepatitis B Vaccines Aged Out No long er eligible based on patient's age to complete this topic
== END 2025-02-15 14:29 | disposition home or self-care (01) ==
LOC: HO.HUSH 13:06
PROVIDERS: PCP Internal Medicine; Visit Provider Urology
DX: N40.1 Benign prostatic hyperplasia with lower urinary tract symptoms (principal); N13.8 Other obstructive and reflux uropathy; N52.03 Combined arterial insufficiency and corporo-venous occlusive erectile dysfunction
CPT/HCPCS: 99213; G2211

== ENCOUNTER → 2025-02-15 13:06 | Outpatient (BNVA) | payer MEDICARE, SELFPAY | PROVIDERS: PCP Internal Medicine; Visit Provider Urology | DX: N40.1 Benign prostatic hyperplasia with lower urinary tract symptoms (principal); N13.8 Other obstructive and reflux uropathy; N52.03 Combined arterial insufficiency and corporo-venous occlusive erectile dysfunction | CPT/HCPCS: 99212 ==

== ENCOUNTER 2025-08-17 13:22 | Outpatient (AMB) | payer MEDICARE, SELFPAY ==
--- NOTE | 2025-08-17 09:51 | MHC.OFFVIS ---
Intake Visit Reasons: 6M Follow up/ PVR Intake Note: Patient is present for 6m f/u Urology Medication:tadalafil Antibiotic Allergy:ciprofloxacin,penicillin,sulfa,bactrim,doxazosin Blood Thinner:aspirin PVR:0 mls Air Moving Technician Required: No Accompanied by: Self / Same As Patient Allergies ciprofloxacin (From Cipro) Allergy (Mild, Verified 08/17/25 13:24) Hives Penicillins Allergy (Mild, Verified 08/17/25 13:24) burning ragweed pollen Allergy (Mild, Verified 08/17/25 13:24) upper respiratory sulfamethoxazole (From Bactrim) Allergy (Mild, Verified 08/17/25 13:24) Rash trimethoprim (From Bactrim) Allergy (Mild, Verified 08/17/25 13:24) Rash doxazosin Allergy (Mild, Uncoded 02/15/25 13:07) Hypotension HPI Comments Details: Sang is a pleasant male. He is a patient of Dr. Diaz. He is seen for following urologic conditions - lower urinary tract symptoms - erectile dysfunction Six-month follow-up Treatment - tadalafil for combination erectile dysfunction and lower urinary tract symptoms Stable response Prescription provided Discussed his recumbent trike Erectile dysfunction Initial symptoms - Progressive Has associated peripheral vascular disease Trialed oral medications number of years ago Minimal morning erections Unable to obtain erection sufficient for intercourse Adequate response with escalated combination therapy 10 mg daily +20 mg on demand Lower urinary tract symptoms Current symptoms - mild urge, minimal nocturia PSA 03/02 0.9 Initial evaluation Nocturia times 1-2 - Urinary urge Had stopped doxazosin secondary to episodes of dizziness - BP 58/30 PVR 0 - Is bothered by current symptoms FELIZ 1+ Review of Systems Const Denies chills and Denies fever(s) Card Reports no additional complaints and Denies syncope Resp Denies cough GI Denies abdominal pain and Denies heartburn Reports as per HPI and Denies change in libido Neuro Denies syncope Psych Denies change in libido Endo Denies change in libido Physical Exam Const General: cooperative, healthy appearing, comfortable and no acute distress Orientation/consciousness: patient oriented x3 HEENT Face and sinus: Yes normal facial exam Mouth: moist mucous membranes Neck Neck: Yes normal visual inspection, Yes full ROM and Yes trachea midline Chest Chest palpation & inspection: normal inspection of the chest Resp Effort & Inspection: normal respiratory effort, able to speak in complete sentences and no respiratory distress GI Inspection: Yes normal to inspection Back/Spine/Pelvis Cervical Spine: normal cervical lordosis Thoracic/Lumbar Spine: thoracic and lumbar spine normal to inspection Skin General skin exam: no rashes or lesions noted Neuro General: patient oriented x3, gait normal, tone normal and moves all extremities Extrem General: Yes normal to inspection and Yes capillary refill normal Assessment & Plan Assessment & Plan (1) BPH w urinary obs/LUTS: Code(s): N40.1 - Benign prostatic hyperplasia with lower urinary tract symptoms; N13.8 - Other obstructive and reflux uropathy Category: Medical (2) Erectile dysfunction: Code(s): N52.9 - Male erectile dysfunction, unspecified Category: Medical Qualifiers: Erectile dysfunction type: vasculogenic 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 Qualified Code(s): N52.03 - Combined arterial insufficiency and corporo-venous occlusive erectile dysfunction Plan Six-month follow-up Refill medications Medications: Refilled tadalafil 10 mg PO DAILY 90 tabs 1RF sexual activity 90 days N52.01 - Erectile dysfunction due to arterial insufficiency Patient Instructions: This note is constructed using voice recognition software. While every effort has been made to ensure accuracy job counselor errors may have been included. Imaging studies, laboratory and physical exam results were discussed and reviewed in detail. No major barriers to patient understanding were identified. An opportunity to ask questions regarding the treatment plan was provided. All questions were answered. The patient expressed understanding and agreement with the above treatment plan. The patient is aware they should contact our office by phone for worsening of their current condition or the appearance of new urologic symptoms. Compliance is encouraged with any medications and followup testing that is ordered. It is a privilege to participate in the urologic care of your patient. If you have any questions or concerns regarding treatment for the above conditions, or other urologic issues, please do not hesitate to contact me. The office telephone contact is [phone]. Sincerely, Dr Dany Breen MD, [facility] - Urology Compassionate Specialist Care for the Genitourinary System Coding Level of Care Code Est Pt Level 3 (16072) Complex EM visit Add On G2211 Diagnoses BPH w urinary obs/LUTS N40.1; N13.8 Combined arterial insufficiency and corporo-venous occlusive erectile dysfunction N52.03 Erectile dysfunction type: vasculogenic 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
== END 2025-08-17 14:07 | disposition home or self-care (01) ==
LOC: HO.HUSH 13:22
PROVIDERS: PCP Internal Medicine; Visit Provider Urology
DX: N40.1 Benign prostatic hyperplasia with lower urinary tract symptoms (principal); N13.8 Other obstructive and reflux uropathy; N52.03 Combined arterial insufficiency and corporo-venous occlusive erectile dysfunction; Z13.9 Encounter for screening, unspecified
CPT/HCPCS: 99213; G2211

== ENCOUNTER → 2025-08-17 13:22 | Outpatient (BNVA) | payer MEDICARE, SELFPAY | PROVIDERS: PCP Internal Medicine; Visit Provider Urology | DX: N40.1 Benign prostatic hyperplasia with lower urinary tract symptoms (principal); N13.8 Other obstructive and reflux uropathy; N52.03 Combined arterial insufficiency and corporo-venous occlusive erectile dysfunction; I73.9 Peripheral vascular disease, unspecified; Z79.82 Long term (current) use of aspirin | CPT/HCPCS: 51798; 81003; 99212 ==